=== PATIENT | male | born 1975 ===

== ENCOUNTER 2022-12-24 21:30 | Emergency (ER) | payer SELFPAY ==
[~2022-12-24] VITALS: Ht 419.6 cm; Wt 93.2 kg
[2022-12-24 21:41] VITALS: BP 158/101
== END 2022-12-24 22:50 ==
LOC: ER 21:31
DX: S60.410A Abrasion of right index finger, initial encounter (principal); M54.59 Other low back pain; V49.3XXA Car occupant (driver) (passenger) injured in unspecified nontraffic accident, initial encounter; Y93.89 Activity, other specified; Y92.89 Other specified places as the place of occurrence of the external cause; Y99.8 Other external cause status
CPT/HCPCS: 99283